=== PATIENT | male | born 1955 | race Two or more races ===

== ENCOUNTER 2024-07-17 00:18 | Emergency (ER) | payer OTHER ==
[~2024-07-17] VITALS: Ht 170.2 cm; Wt 113.4 kg
[2024-07-17] MEDS ORDERED: ECOTRIN81 MG PO (00:25)
[2024-07-17] MEDS ORDERED: 0.9 % SODIUM CHLORIDE 1,000 ML IV STA (01:18)
[2024-07-17] MEDS ORDERED: THIAMINE HCL 100 MG/ML 2 ML VIAL IV STA (01:19)
[2024-07-17] MEDS ORDERED: THIAMINE HCL 100 MG/ML 2 ML VIAL ONE (01:25)
[2024-07-17 02:30] LABS: BASO % 1.3 % (0.1-1.2); EOS # 0.13 (0.04-0.54); EOS % 2.5 % (0.7-7.0); HEMATOCRIT 41.4 % (40.1-51.0); HEMOGLOBIN 15.6 g/dL (13.7-17.5); LYMPH # 1.67 (1.18-3.74); LYMPH % 31.6 % (19.3-53.1); MEAN CORPUSCULAR HEMOGLOBIN 36.8 pg (25.6-32.2); MONO # 0.66 (0.24-0.82); MONO % 12.5 % (4.7-12.5); NEUT # 2.74 (1.56-6.13); NEUT % 51.7 % (34.0-71.1); PLATELET COUNT 115 K/uL (163-369); RED BLOOD COUNT 4.24 M/uL (4.63-6.08)
[2024-07-17 03:41] LABS: INR 1.06; PARTIAL THROMBOPLASTIN TIME 25.7 SECONDS (22.0-34.0); PROTHROMBIN TIME 11.5 SECONDS (9.0-11.5)
[2024-07-17 04:38] LABS: ALBUMIN 3.4 gm/dL (3.4-5.0); CALCIUM 8.4 mg/dL (8.5-10.1); CREATININE SERUM 0.91 mg/dL (0.70-1.30); GFR 82.61; GLOBULINA 4.3 G/DL (2.4-3.5); POTASSIUM 3.8 mEq/L (3.5-5.1); TOTAL PROTEIN 7.7 gm/dL (6.4-8.2)
[2024-07-17 04:39] LABS: BILIRUBIN TOTAL 0.78 mg/dL (0.3-1.2)
== END 2024-07-17 06:33 | disposition home or self-care (01) ==
LOC: ER 00:18
PROVIDERS: Pediatrics Pediatric Critical Care Medicine
DX: R55 Syncope and collapse (principal); F10.10 Alcohol abuse, uncomplicated; I10 Essential (primary) hypertension